=== PATIENT | female | born 1990 | race Caucasian/White ===

== ENCOUNTER 2016-08-19 15:58 | Emergency (ER) | payer OTHER ==
[~2016-08-19] VITALS: Wt 84.1 kg
[~2016-08-19 15:58] MED LIST: NO CURRENT MEDS
[2016-08-19] MEDS ORDERED: ACETAMINOPHEN 500 MG TAB PO STA (16:21)
--- NOTE | 2016-08-19 16:52 | RADRPT ---
PROCEDURE: XR Chest AP portable CLINICAL INDICATION: Cough, fever TECHNIQUE: An AP portable radiograph of the chest was submitted. COMPARISON: None. FINDINGS: Support Hardware: None Cardiovascular: The cardiovascular silhouette appears unremarkable. Lung Underwood: The lung underwood appear clear with no nodule, alveolar infiltrate, or interstitial promi nence evident. Pleural Spaces: No pneumothorax or pleural effusion is identified. Osseous Structures: The osseous structures appear intact. Soft Tissues: The soft tissues appear generous. IMPRESSION: Unremarkable portable chest. Physician Shaun Date Time Electronically viewed and signed by Carrie Orozco Physician on 08/19/2016 16:52 RH/
[2016-08-19] MEDS ORDERED: ACET500C5 PO (17:01)
[2016-08-19] MEDS ORDERED: IBUP-1542 PO (17:01)
[2016-08-19] MEDS ORDERED: BENZ100C70 PO (17:02)
[2016-08-19] MEDS ORDERED: SODI30SP2 NS (17:03)
--- NOTE | 2016-08-19 17:08 | ERD ---
ER Documentation Chief Complaint Date/Time DATE: 08/19/16 TIME: 17:06 Chief Complaint sore throat, cough and congestion, fever, bodyaches HPI Patient is a 25-year-old female who presents to the ED with sore throat, cough, congestion and body aches 3 days. She states that she has tried tea for her symptoms no other medication. Denies headache or dizziness, neck pain or stiffness. Denies abdominal pain, nausea, vomiting or diarrhea. Denies leg pain or swelling. Denies recent surgeries or recent travel. Denies chest pain , shortness of breath or difficulty breathing. Denies hemoptysis or night sweats. No other complaints. ROS All systems reviewed and are negative except as per history of present illness. Medications Home Meds Active Scripts Sodium Chloride (Saline Nasal Sterling) 30 Ml Sterling, 30 ML NS BID for 30 Days, SPRAY Prov:DENISSE MALDONADO PA-C 08/19/16 Benzonatate* (Tessalon Perle*) 100 Mg Capsule, 100 MG PO Q8H Y for COUGH for 28 Days, CAP Prov:SHOLINDATARIANDENISSE PA-C 08/19/16 Ibuprofen* (Motrin*) 600 Mg Tab, 600 MG PO Q6, #30 TAB Prov:SHOLINDATARIANDENISSE PA-C 08/19/16 Acetaminophen* (Tylophen*) 500 Mg Capsule, 1 CAP PO Q6H Y for PAIN AND OR ELEVATED TEMP, #20 CAP Prov:SHOOSHTARIANMICHELLEAZ PA-C 08/19/16 Reported Medications [No Current Meds] No Conflict Check 06/17/10 Allergies Allergies: Coded Allergies: No Known Drug Allergies (Verified Allergy, Mild, 11/14/10) PMhx/Soc History of Surgery: No Anesthesia Reaction: No Hx Neurological Disorder: No Hx Respiratory Disorders: No Hx Cardiac Disorders: No Hx Psychiatric Problems: No Hx Miscellaneous Medical Probl: No Hx Alcohol Use: No Hx Substance Use: No Hx Tobacco Use: No FmHx Family History: No coronary disease, No diabetes, No other Physical Exam Vitals Vital Signs Date Time Temp Pulse Resp B/P Pulse Ox O2 Delivery O2 Flow Rate FiO2 08/19/16 16:02 100.6 85 20 136/83 100 Physical Exam GENERAL: Well-developed, well-nourished female. Appears in no acute distress. HEAD: Normocephalic, atraumatic. EYES: Pupils are equally reactive bilaterally. EOMs grossly intact. No conjunctival erythema. ENT: Moist mucous membranes. No uvula deviation. No kissing tonsils. No exudates. NECK: Supple. No lymphadenopathy or thyromegaly. No meningismus. negative kernig. negative brudinski. LUNG: Clear to auscultation bilaterally. No rhonchi, wheezing, rales or coarse breath sounds. HEART: Regular rate and rhythm. No murmurs, rubs or gallops. NEUROLOGIC: Alert and oriented. Moving all four extremities. 5/5 strength in all extremities. Normal speech. Steady gait. SKIN: Normal color. Warm and dry. No rashes or lesions. Capillary refill < 2 seconds Results 24 hrs Current Medications Medications (Trade) Dose Ordered Sig/Nohemi Route PRN Reason Start Time Stop Time Status Last Admin Dose Admin Acetaminophen (Tylenol Tab) 1,000 mg ONCE STAT PO 08/19/16 16:21 08/19/16 16:22 DC 08/19/16 16:35 Procedures/MDM ER COURSE: I kept the patient and/or family informed of laboratory and diagnostic imaging results throughout the emergency room course. IMAGING STUDIES [place] [id number] Radiology Main Line: [phone] DIAGNOSTIC IMAGING REPORT Patient: LEAH LEOS : 1990 Age: 25 Sex: F MR #: [id number] DOS: 08/19/16 1621 Ordering MD: DENISSE MALDONADO PA-C Location: [facility] Room/Bed: PROCEDURE: XR Chest AP portable CLINICAL INDICATION: Cough, fever TECHNIQUE: An AP portable radiograph of the chest was submitted. COMPARISON: None. FINDINGS: Support Hardware: None Cardiovascular: The cardiovascular silhouette appears unremarkable. Lung Lin: The lung lin appear clear with no nodule, alveolar infiltrate, or interstitial prominence evident. Pleural Spaces: No pneumothorax or pleural effusion is identified. Osseous Structures: The osseous structures appear intact. Soft Tissues: The soft tissues appear generous. IMPRESSION: Unremarkable portable chest. Physician Shaun Date Time Electronically viewed and signed by Physician Shaun on 08/19/2016 16:52 RH/ CC: DENISSE MALDONADO PA-C MEDICAL DECISION MAKING: This is a 25-year-old female who presents with cough, congestion, runny nose and body aches 3 days. Vital signs were reviewed. Patient is afebrile. Patient is not hypoxic. Patient is not toxic or ill-appearing. Patient likely has URI of viral etiology. X-rays of by radiologist unremarkable. Low suspicion for pneumonia, PE, pneumothorax, ACS, epiglottitis, obstruction, TB, pertussis, meningitis, sepsis. DISCHARGE: At this time, patient is stable for discharge and outpatient management with no new complaints during the ER course. Patient was sent home with Tessalon Perles , Motrin, Tylenol and saline nasal spray and a note for work. Patient will be discharged home with instructions to recheck for new or worsening symptoms such as fever, nausea, weakness, LOC and to follow up with primary care in the next 1 -2 days. Patient was advised to return to the ER for any new or worsening symptoms. Plan was discussed and patient and/or family understands and agrees. Home instructions were given. Departure Diagnosis: Primary Impression: Acute URI Condition: Stable Patient Instructions: Uri, Viral, No Abx (Adult) Additional Instructions: Llame al doctor MAANA y tuyet phi UBALDO PARA DENTRO DE 1-2 CASE.Dgale a la secretaria que nosotros le instruimos hacer esta ubaldo.Avise o llame si butler condicin se empeora antes de la ubaldo. Regresa aqui si peor o no mejor. DENISSE MALDONADO PA-C Aug 19, 2016 17:08
== END 2016-08-19 17:11 | disposition home or self-care (01) ==
LOC: FTE 15:58
DX: J06.9 Acute upper respiratory infection, unspecified (principal)
CPT/HCPCS: 71010; Z7610

== ENCOUNTER 2016-08-21 07:43 | Emergency (ER) | payer OTHER ==
[~2016-08-21] VITALS: Wt 80.0 kg
[~2016-08-21 07:43] MED LIST changes: +ACET500C5 PO; +BENZ100C70 PO; +IBUP-1542 PO; +SODI30SP2 NS
[2016-08-21] MEDS ORDERED: AZIT250T94 PO (08:20)
[2016-08-21] MEDS ORDERED: LORA1TAB54 PO (08:20)
--- NOTE | 2016-08-21 08:32 | ERD ---
ER Documentation Chief Complaint Date/Time DATE: 08/21/16 TIME: 08:30 Chief Complaint FLU LIKE SYMPTOMS FOR 1 WEEK. NO DISTRESS. BODYACHES HPI This is a 25-year-old female presenting to the emergency department complaining of cough, congestion, body aches for the past week. Patient states that she has been seen here 2 days ago and was given ibuprofen, Tylenol, Tessalon Perles for her viral upper respiratory infection. Patient states that she continues to have nasal congestion and that is not improving. She denies any nausea, vomiting, diarrhea, chest pain, shortness of breath. She states that she feels as if her cough is worsening ROS All systems reviewed and are negative except as per history of present illness. Medications Home Meds Active Scripts Loratadine/Pseudoephedrine* (Claritin-D* 12 Hr) 5-120 Mg Tab.er.12h, 1 TAB PO Q12, #20 TAB.SA Prov:MICHAEL MARTÍNEZ PA-C 08/21/16 Azithromycin* (Zithromax*) 250 Mg Tablet, 250 MG PO .ZPACK DIRECTED, #6 TAB TAKE 500 MG (2 TABS) THE FIRST DAY THEN 250 MG (1 TAB) DAYS 2-5 Prov:MICHAEL MARTÍNEZ PA-C 08/21/16 Sodium Chloride (Saline Nasal [place]) 30 Ml [place], 30 ML NS BID for 30 Days, SPRAY Prov:DENISSE MALDONADOC 08/19/16 Benzonatate* (Tessalon Perle*) 100 Mg Capsule, 100 MG PO Q8H Y for COUGH for 28 Days, CAP Prov:DENISSE MLADONADOC 08/19/16 Ibuprofen* (Motrin*) 600 Mg Tab, 600 MG PO Q6, #30 TAB Prov:DENISSE MALDONADO-C 08/19/16 Acetaminophen* (Tylophen*) 500 Mg Capsule, 1 CAP PO Q6H Y for PAIN AND OR ELEVATED TEMP, #20 CAP Prov:DENISSE MALDONADO-C 08/19/16 Reported Medications [No Current Meds] No Conflict Check 06/17/10 Allergies Allergies: Coded Allergies: No Known Drug Allergies (Verified Allergy, Mild, 11/14/10) PMhx/Soc History of Surgery: No Anesthesia Reaction: No Hx Neurological Disorder: No Hx Respiratory Disorders: No Hx Cardiac Disorders: No Hx Psychiatric Problems: No Hx Miscellaneous Medical Probl: No Hx Alcohol Use: No Hx Substance Use: No Hx Tobacco Use: No Physical Exam Vitals Vital Signs Date Time Temp Pulse Resp B/P Pulse Ox O2 Delivery O2 Flow Rate FiO2 08/21/16 07:47 98.0 68 21 129/84 100 Physical Exam GENERAL: well-developed/well-nourished, in no apparent distress, non-toxic appearing HEAD: NC/AT, no swelling noted in frontal or maxillary areas EARS: bilateral tympanic membrane is intact without erythema or effusion NARES: rhinorrhea and congested THROAT: oropharynx nonerythematous without exudates, no tonsil enlargement, post nasal drip EYES: Conjunctiva normal NECK: Supple, no lymphadenopathy PULM: CTA bilaterally, no rales, rhonchi, or wheezing heard CV: Normal S1S2, RRR, good capillary refill GI: Soft, non-distended, normal bowel sounds, non-tender BACK: No midline tenderness, no masses EXT No clubbing, cyanosis, or edema NEURO: Alert and Orientated SKIN: Intact, normal turgor PSYCH: Normal mood and mentation Procedures/MDM This is a 25-year-old female presenting to the emergency department for symptoms that are most consistent with an upper respiratory infection. This is patient's second visit in the past few days. On examination patient is afebrile , she appears well and lungs were clear to auscultation bilaterally. There was no evidence of any infiltrates. I discussed the patient that it will take some time for her to get better and at this most likely a viral upper respiratory infection. Patient states that she really wants antibiotics, I discussed that I can give her azithromycin however she may not get better since this is a virus. Patient understands and agrees with that. There was no evidence of pneumonia, strep pharyngitis, otitis media. Prescription for azithromycin Z- Toribio and Claritin-D was provided. Discussed return to the ER for any worsening signspatient understands and agrees with this plan Departure Diagnosis: Primary Impression: Upper respiratory infection Condition: Stable Patient Instructions: Preventing Common Respiratory Infections, Bronchitis, Antiobiotic Treatment (Adult), Uri, Viral, No Abx (Adult) Referrals: DOCTOR,NOT ON STAFF (PCP) Additional Instructions: FOLLOW UP WITH YOUR PRIMARY CARE PHYSICIAN TOMORROW.Return to this facility if you are not improving as expected. Take all medicines as directed. Return to this facility if you are not improving as expected. MICHAEL MARTÍNEZ PA-C Aug 21, 2016 08:32
== END 2016-08-21 09:22 | disposition home or self-care (01) ==
LOC: FTE 07:43
DX: J06.9 Acute upper respiratory infection, unspecified (principal)
CPT/HCPCS: 99283

== ENCOUNTER 2016-10-16 08:43 | Emergency (ER) | payer OTHER ==
[~2016-10-16] VITALS: Ht 170.2 cm; Wt 89.5 kg
[~2016-10-16 08:43] MED LIST changes: +AZIT250T94 PO; +LORA1TAB54 PO
[2016-10-16 08:49] VITALS: Ht 170.2 cm; Wt 89.5 kg
[2016-10-16] MEDS ORDERED: CEPHALEXIN 500 MG CAP PO STA (09:05)
[2016-10-16] MEDS ORDERED: TRIMETHOPRIM/SULFAMETHOX (DS) TAB PO STA (09:05)
[2016-10-16] MEDS ORDERED: SULF1TAB31 PO (09:38)
[2016-10-16] MEDS ORDERED: CEPH-443 PO (09:38)
--- NOTE | 2016-10-16 09:59 | RADRPT ---
PROCEDURE: US Lower extremity Venous. CLINICAL INDICATION: Left leg edema, pain TECHNIQUE: Multiple sonographic images of the left lower extremity deep venous system was obtained utilizing grayscale, color-flow, compressive sonography and doppler imaging with augmentation. The images were reviewed on a PACS workstation. COMPARISON: None. FINDINGS: There is normal compressibility and flow within the left common femoral, femoral, posterior tibial, peroneal and popliteal veins. RPTAT: AA IMPRESSION: No sonographic evidence for deep venous thrombosis. .Tad Schwab MD, MD Date Time Electronically viewed and signed by .Tad Schwab MD, on 10/16/2016 09:59 .S/
--- NOTE | 2016-10-16 10:26 | ERD ---
ER Documentation Chief Complaint Date/Time DATE: 10/16/16 TIME: 10:23 Chief Complaint possible insect bite @ left leg HPI This is a 26-year-old female presenting to the emergency department complaining of left lower extremity pain, redness and swelling for the past few days. Patient states that a few days ago she started itching her left lower leg and then she noted becoming increased redness. Patient states the pain is constant , 8 out of 10 and increased with movement. Patient denies fevers, shortness of breath, chest pain. Patient states that she has not tried any medication ROS All systems reviewed and are negative except as per history of present illness. Medications Home Meds Active Scripts Sulfamethoxazole/Trimethoprim* (Bactrim Ds* Tablet) 1 Each Tablet, 1 TAB PO BID , #14 TAB Prov:MICHAEL MARTÍNEZ PA-C 10/16/16 Cephalexin* (Keflex*) 500 Mg Capsule, 500 MG PO QID for 10 Days, CAP Prov:MICHAEL MARTÍNEZ PA-C 10/16/16 Loratadine/Pseudoephedrine* (Claritin-D* 12 Hr) 5-120 Mg Tab.er.12h, 1 TAB PO Q12, #20 TAB.SA Prov:MICHAEL MARTÍNEZ PA-C 08/21/16 Azithromycin* (Zithromax*) 250 Mg Tablet, 250 MG PO .ZPACK DIRECTED, #6 TAB TAKE 500 MG (2 TABS) THE FIRST DAY THEN 250 MG (1 TAB) DAYS 2-5 Prov:MICHAEL MARTÍNEZ PA-C 08/21/16 Sodium Chloride (Saline Nasal [place]) 30 Ml [place], 30 ML NS BID for 30 Days, SPRAY Prov:DENISSE MALDONADO PA-C 08/19/16 Benzonatate* (Tessalon Perle*) 100 Mg Capsule, 100 MG PO Q8H Y for COUGH for 28 Days, CAP Prov:DENISSE MALDONADOC 08/19/16 Ibuprofen* (Motrin*) 600 Mg Tab, 600 MG PO Q6, #30 TAB Prov:DENISSE MALDONADO-C 08/19/16 Acetaminophen* (Tylophen*) 500 Mg Capsule, 1 CAP PO Q6H Y for PAIN AND OR ELEVATED TEMP, #20 CAP Prov:DENISSE MALDONADO PA-C 08/19/16 Reported Medications [No Current Meds] No Conflict Check 06/17/10 Allergies Allergies: Coded Allergies: No Known Drug Allergies (Verified Allergy, Mild, 10/16/16) PMhx/Soc Medical and Surgical Hx: pt denies Medical Hx, pt denies Surgical Hx History of Surgery: No Anesthesia Reaction: No Hx Neurological Disorder: No Hx Respiratory Disorders: No Hx Cardiac Disorders: No Hx Psychiatric Problems: No Hx Miscellaneous Medical Probl: No Hx Alcohol Use: No Hx Substance Use: No Hx Tobacco Use: No Physical Exam Vitals Vital Signs Date Time Temp Pulse Resp B/P Pulse Ox O2 Delivery O2 Flow Rate FiO2 10/16/16 08:49 98.0 75 18 113/70 97 Physical Exam General: WD/WN, in no apparent distress, non-toxic appearing HENT: NC/AT Eyes: Conjunctiva normal Neck: Supple Pulm: Clear to auscultation, normal labored breathing; no wheezing/rales/ rhonchi heard CV: Good capillary refill GI: Non-distended, no guarding Back: No masses Ext: No clubbing, cyanosis, or edema Neuro: Moves on all fours Skin: Indurated, erythematous, warm patch on left lower extremity -non- circumferential Psych: Normal mood Results 24 hrs Current Medications Medications (Trade) Dose Ordered Sig/Nohemi Route PRN Reason Start Time Stop Time Status Last Admin Dose Admin Cephalexin (Keflex) 500 mg ONCE STAT PO 10/16/16 09:05 10/16/16 09:06 DC 10/16/16 09:09 Trimethoprim/ Sulfamethoxazole (Bactrim (Ds)) 1 tab ONCE STAT PO 10/16/16 09:05 10/16/16 09:06 DC 10/16/16 09:09 Procedures/MDM This is a 26-year-old female presenting to the emergency department with cellulitis of the left lower extremity, there was no evidence of lymphangitis, osteomyelitis. The patient is appropriate for outpatient antibiotics. In the ED , I have marked demarcated the borders with a skin marker. Patient is afebrile , she appears well and nontoxic appearing patient was given Keflex and Bactrim in the ED. An ultrasound of the left lower leg was done and did not show any evidence of DVT. Patient stable for discharge her home with prescription for Keflex and Bactrim, discussed to follow-up with primary care physician in 2 days for wound check. Discussed return to the ER for any worsening sinus symptoms. She understands and agrees with this plan Departure Diagnosis: Primary Impression: Cellulitis Condition: Stable Patient Instructions: Cellulitis Referrals: [facility] YOU HAVE RECEIVED A MEDICAL SCREENING EXAM AND THE RESULTS INDICATE THAT YOU DO NOT HAVE A CONDITION THAT REQUIRES URGENT TREATMENT IN THE EMERGENCY DEPARTMENT. FURTHER EVALUATION AND TREATMENT OF YOUR CONDITION CAN WAIT UNTIL YOU ARE SEEN IN YOUR DOCTORS OFFICE WITHIN THE NEXT 1-2 DAYS. IT IS YOUR RESPONSIBILITY TO MAKE AN AP[facility]MENT [facility] IF YOU HAVE A PRIMARY DOCTOR --you should call your primary doctor and schedule an appointment IF YOU DO NOT HAVE A PRIMARY DOCTOR YOU CAN CALL OUR PHYSICIAN REFERRAL HOTLINE AT IF YOU CAN NOT AFFORD TO SEE A PHYSICIAN YOU CAN CHOSE FROM THE FOLLOWING [facility]MERLY [facility], [facility] [address]. [facility] [address] [facility] [address] [facility] [address] [facility]. [facility] [address] [facility]. [facility]. [address] Additional Instructions: FOLLOW UP WITH YOUR PRIMARY CARE PHYSICIAN TOMORROW.Return to this facility if you are not improving as expected. Take all medicines as directed. Return to this facility if you are not improving as expected. MICHAEL MARTÍNEZ PA-C Oct 16, 2016 10:26
== END 2016-10-16 10:10 | disposition home or self-care (01) ==
LOC: FTE 08:43
DX: L03.116 Cellulitis of left lower limb (principal)
CPT/HCPCS: 93971; Z7502; Z7610

== ENCOUNTER 2017-08-04 16:33 | Emergency (ER) | END 2017-08-04 16:49 | disposition home or self-care (01) ==

== ENCOUNTER 2017-08-07 07:02 | Emergency (ER) | END 2017-08-07 09:48 | disposition home or self-care (01) ==

== ENCOUNTER → 2017-11-19 | Emergency (ER) | END | disposition home or self-care (01) ==

== ENCOUNTER 2018-10-31 15:01 | Emergency (ER) | payer OTHER ==
[~2018-10-31] VITALS: Ht 170.2 cm; Wt 88.4 kg
[~2018-10-31 15:01] MED LIST changes: +ACET325T33 PO; +AZIT250T PO; -AZIT250T94 PO; +BENZ-6 PO; -BENZ100C70 PO; +CEPH-443 PO; +CETI10CA PO; +ELEC100080 PO; +HYDR-4011 PO; +LOPE2CAP PO; +ONDA4TAB8 PO; +PSEU120T11 PO; +SULF1TAB31 PO
[2018-10-31 15:07] VITALS: Ht 170.2 cm; Wt 88.4 kg
[2018-10-31] MEDS ORDERED: ONDANSETRON 4 MG INJ IV STA (15:16)
[2018-10-31] MEDS ORDERED: SOD CHLORIDE 0.9% 1,000 ML IV STA (15:16)
--- NOTE | 2018-10-31 16:50 | ERD ---
ER Documentation Chief Complaint Chief Complaint abdominal pain, diarrhea, nausea and vomiting x 6 days, HPI 28-year-old female presents with 6 days of abdominal pain with nausea vomiting and diarrhea. She is tolerating oral intake but she states afterwards she will get watery stools. No blood or dark or tarry stools. No fever. No urinary symptoms. ROS All systems reviewed and are negative except as per history of present illness. Medications Home Meds Active Scripts Electrolyte,Oral (Pedialyte) 1,000 Ml Solution, 100 ML PO Q6 PRN for VOMITTING, #1000 ML Prov:REY EM PA-C 11/19/17 Ondansetron Hcl* (Zofran*) 4 Mg Tablet, 4 MG PO Q6H for NAUSEA AND/OR VOMITING, #30 TAB Prov:REY EM PA-C 11/19/17 Acetaminophen* (Tylophen*) 500 Mg Capsule, 1 CAP PO Q6H PRN for PAIN AND OR ELEVATED TEMP, #30 CAP Prov:REY EM PA-C 11/19/17 Electrolyte,Oral (Pedialyte) 1,000 Ml Solution, 100 ML PO Q6 PRN for DIARRHEA, #1000 ML Prov:NAM SYKES PA-C 08/07/17 Hydrocodone/Acetaminophen ([place] 5-325 Tablet) 1 Each Tablet, 1 TAB PO Q6H PRN for PAIN, #5 TAB Prov:NAM SYKES PA-C 08/07/17 Loperamide Hcl* (Imodium*) 2 Mg Capsule, 2 MG PO .AFTER EA LOOSE BM PRN for DIARRHEA, #10 TAB Prov:NAM SYKES PA-C 08/07/17 Pseudoephedrine Hcl (Sudafe 12-Hour) 120 Mg Tablet.er, 120 MG PO BID PRN for CONGESTION, #20 TAB.SA Prov:MICHAEL MARTÍNEZ PA-C 08/04/17 Sodium Chloride (Saline Nasal [place]) 30 Ml [place], 30 ML NS BID, #1 SPRAY Prov:MICHAEL MARTÍNEZ PA-C 08/04/17 Acetaminophen* (Tylenol*) 325 Mg Tablet, 2 TAB PO Q6 PRN for PAIN AND OR ELEVATED TEMP, #30 TAB Prov:MICHAEL MARTÍNEZ PA-C 08/04/17 Cetirizine Hcl* (Zyrtec*) 10 Mg Capsule, 10 MG PO DAILY, #30 TAB.CHEW Prov:MICHAEL MARTÍNEZC 08/04/17 Benzonatate* (Tessalon Perle*) 100 Mg Capsule, 100 MG PO Q8H PRN for COUGH, #30 CAP Prov:MICHAEL MARTÍNEZ-C 08/04/17 Sulfamethoxazole/Trimethoprim* (Bactrim Ds* Tablet) 1 Each Tablet, 1 TAB PO BID, #14 TAB Prov:MICHAEL MARTÍNEZ-C 10/16/16 Cephalexin* (Keflex*) 500 Mg Capsule, 500 MG PO QID for 10 Days, CAP Prov:MICHAEL MARTÍNEZ-C 10/16/16 Loratadine/Pseudoephedrine* (Claritin-D* 12 Hr) 5-120 Mg Tab.er.12h, 1 TAB PO Q12, #20 TAB.SA Prov:MICHAEL MARTÍNEZC 08/21/16 Azithromycin* (Zithromax*) 250 Mg Tablet, 250 MG PO .ZPACK DIRECTED, #6 TAB TAKE 500 MG (2 TABS) THE FIRST DAY THEN 250 MG (1 TAB) DAYS 2-5 Prov:MICHAEL MARTÍNEZ-C 08/21/16 Sodium Chloride (Saline Nasal [place]) 30 Ml [place], 30 ML NS BID for 30 Days, SPRAY Prov:DENISSE MALDONADOC 08/19/16 Benzonatate* (Tessalon Perle*) 100 Mg Capsule, 100 MG PO Q8H PRN for COUGH for 28 Days, CAP Prov:DENISSE MALDONADO-C 08/19/16 Ibuprofen* (Motrin*) 600 Mg Tab, 600 MG PO Q6, #30 TAB Prov:DENISSE MALDONADO-C 08/19/16 Acetaminophen* (Tylophen*) 500 Mg Capsule, 1 CAP PO Q6H PRN for PAIN AND OR ELEVATED TEMP, #20 CAP Prov:DENISSE MALDONADO-C 08/19/16 Reported Medications [No Current Meds] No Conflict Check 06/17/10 Allergies Allergies: Coded Allergies: No Known Drug Allergies (Verified Allergy, Mild, 10/16/16) PMhx/Soc History of Surgery: No Anesthesia Reaction: No Hx Neurological Disorder: No Hx Respiratory Disorders: No Hx Cardiac Disorders: No Hx Psychiatric Problems: No Hx Miscellaneous Medical Probl: No Hx Alcohol Use: No Hx Substance Use: No Hx Tobacco Use: No Smoking Status: Never smoker FmHx Family History: No diabetes Physical Exam Vitals Vital Signs Date Temp Pulse Resp B/P (MAP) Pulse Ox O2 O2 Flow FiO2 Time Delivery Rate 10/31/18 98.2 69 18 124/77 98 15:07 (93) Physical Exam INITIAL VITAL SIGNS: Reviewed by me GENERAL: Awake, alert and oriented x 4, well appearing, nontoxic, speaking in full sentences. No acute distress HEAD: Atraumatic RESPIRATORY: Clear to auscultation bilaterally. Symmetric chest wall rise. No wheezing or rales. No accessory muscle use. CV: Regular rate and rhythm. No murmurs, rubs, or gallops. ABDOMEN: Soft, non-distended. Nontender. Negative [place]. Negative [place] point tenderness. No CVA tenderness bilaterally. No guarding. No rebound. Result Diagram: 10/31/18 1548 10/31/18 1548 Results 24 hrs Laboratory Tests Test 10/31/18 15:48 10/31/18 15:57 White Blood Count 10.7 10^3/ul Red Blood Count 4.81 10^6/ul Hemoglobin 12.6 g/dl Hematocrit 40.4 % Mean Corpuscular Volume 84.0 fl Mean Corpuscular Hemoglobin 26.2 pg Mean Corpuscular Hemoglobin Concent 31.2 g/dl Red Cell Distribution Width 13.3 % Platelet Count 395 10^3/UL Mean Platelet Volume 8.7 fl Immature Granulocytes % 0.400 % Neutrophils % 70.7 % Lymphocytes % 18.5 % Monocytes % 7.5 % Eosinophils % 2.2 % Basophils % 0.7 % Nucleated Red Blood Cells % 0.0 /100WBC Immature Granulocytes # 0.040 10^3/ul Neutrophils # 7.6 10^3/ul Lymphocytes # 2.0 10^3/ul Monocytes # 0.8 10^3/ul Eosinophils # 0.2 10^3/ul Basophils # 0.1 10^3/ul Nucleated Red Blood Cells # 0.0 10^3/ul Urine Color YELLOW Urine Clarity SLIGHTLY CLOUDY Urine pH 7.0 Urine Specific [place] 1.023 Urine Ketones NEGATIVE mg/dL Urine Nitrite NEGATIVE mg/dL Urine Bilirubin NEGATIVE mg/dL Urine Urobilinogen NEGATIVE mg/dL Urine Leukocyte Esterase NEGATIVE Aren/ul Urine Microscopic RBC 3 /HPF Urine Microscopic WBC 2 /HPF Urine Squamous Epithelial Cells FEW /HPF Urine Mucus FEW /HPF Urine Hemoglobin NEGATIVE mg/dL Urine Glucose NEGATIVE mg/dL Urine Total Protein NEGATIVE mg/dl Sodium Level 139 mmol/L Potassium Level 4.2 mmol/L Chloride Level 106 mmol/L Carbon Dioxide Level 28 mmol/L Anion Gap 5 Blood Urea Nitrogen 15 mg/dl Creatinine 0.85 mg/dl Est Glomerular Filtrat Rate mL/min > 60 mL/min Glucose Level 98 mg/dl Calcium Level 8.8 mg/dl Total Bilirubin 0.4 mg/dl Direct Bilirubin 0.00 mg/dl Indirect Bilirubin 0.4 mg/dl Aspartate Amino Transf (AST/SGOT) 26 IU/L Alanine Aminotransferase (ALT/SGPT) 22 IU/L Alkaline Phosphatase 67 IU/L Total Protein 7.4 g/dl Albumin 4.0 g/dl Globulin 3.40 g/dl Albumin/Globulin Ratio 1.17 Lipase 80 U/L POC Beta HCG, Qualitative NEGATIVE Current Medications Medications Dose Sig/Nohemi Start Time Status Last (Trade) Ordered Route PRN Stop Time Admin Dose Reason Admin Sodium 1,000 ml @ Q1H STAT 10/31/18 DC 10/31/18 Chloride 1,000 mls/hr IV 15:16 15:47 10/31/18 16:15 Ondansetron 4 mg ONCE STAT 10/31/18 DC 10/31/18 HCl (Zofran IV 15:16 15:46 Inj) 10/31/18 15:18 Procedures/MDM The differential diagnosis includes but is not limited to appendicitis, cholelithiasis, cholecystitis, pancreatitis, hepatitis, gastritis, peptic ulcer disease, bowel obstruction, diverticulitis, renal disease including stones, torsion, AAA, pyelonephritis, and others. Laboratory analysis shows no evidence of acute emergent abnormality. No evidence of significant leukocytosis suggesting systemic infection or severe anemia. No evidence of acute renal or liver failure, no evidence of severe alkalosis or acidosis. Unclear etiology for symptoms, may be viral, low suspicion for emergent etiology of symptoms. Discharged with Zofran and Imodium. Patient counseled regarding my diagnostic impression and care plan. Prior to discharge all questions answered. Pt agrees with treatment plan and understands strict return precautions. Pt is instructed to follow up with primary care provider within 24-48 hours. Precautionary instructions provided including instructions to return to the ER if not improving or for any worsening or changing symptoms or concerns. Departure Diagnosis: Primary Impression: Abdominal pain Condition: Stable SHONDA ALVARADO PA-C Oct 31, 2018 16:50
[2018-10-31] MEDS ORDERED: LOPE2CAP PO (16:51)
[2018-10-31] MEDS ORDERED: ONDA4TAB14 PO (16:51)
[2018-10-31 17:01] VITALS: BP 115/77; PULSE 57; RESP 18
== END 2018-10-31 17:03 | disposition home or self-care (01) ==
LOC: FTE 15:01
DX: R10.9 Unspecified abdominal pain (principal); R11.2 Nausea with vomiting, unspecified
CPT/HCPCS: 36415; 80053; 81001; 81025; 83690; 85025; 96361; 96374; J2405; J7030; Z7502; 81003